=== PATIENT | male | born 2005 | race Caucasian/White ===

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

== ENCOUNTER 2025-03-09 14:52 | Emergency (ER) | payer BC ==
[2025-03-09 15:05] VITALS: BP 117/66; PULSE 93; RESP 20; TEMP 98.1; BMI 21.1
== END 2025-03-09 16:00 | disposition home or self-care (01) ==
LOC: JERFT 14:52 → JER 14:52 → JERFT 16:00
DX: S00.33XA Contusion of nose, initial encounter (principal); W50.0XXA Accidental hit or strike by another person, initial encounter; Y93.67 Activity, basketball
CPT/HCPCS: 99283-25